=== PATIENT | female | born 1935 | race Caucasian/White ===

== ENCOUNTER 2018-07-16 19:13 | Emergency (ER) | payer MEDICAID ==
[~2018-07-16] VITALS: Ht 152.4 cm; Wt 40.8 kg
[~2018-07-16 19:13] MED LIST: ASPI81TA31 PO; BALS750C PO; Budesonide PO; CLON0.5T12 PO; ESOM40CA PO; GABA-532 PO; HYDR25SU7 RC; LEVO500T2 PO; METO25TA6 PO; TRAM50TA2 PO
--- NOTE | 2018-07-16 20:08 | NUR ---
PT WENT DOWN TO RADIOLOGY DEPT FOR CT SCAN & XRAYS.
--- NOTE | 2018-07-16 20:36 | NUR ---
PT BACK FROM CT SCAN. DAUGHTER AT BEDSIDE.
--- NOTE | 2018-07-16 20:48 | NUR ---
Patient discharged to home in stable conditon. Written and verbal after care instructions given. Patient verbalizes understanding of instructions. Pt ambulated out of ER in steady gait accompanied by daughter. All belongings with pt. VSS. NAD noted.
[2018-07-16 20:49] VITALS: BP 138/84
== END 2018-07-16 20:49 | disposition home or self-care (01) ==
LOC: ER 19:15
DX: S22.31XA Fracture of one rib, right side, initial encounter for closed fracture (principal); S00.83XA Contusion of other part of head, initial encounter; I10 Essential (primary) hypertension; Z91.011 Allergy to milk products; W18.30XA Fall on same level, unspecified, initial encounter; Y93.89 Activity, other specified; Y99.8 Other external cause status; Y92.89 Other specified places as the place of occurrence of the external cause
CPT/HCPCS: 70450; 71101; 72125; 73110; A4663

== ENCOUNTER 2019-07-13 15:58 | Inpatient (IN) | payer MEDICAID, OTHER ==
[~2019-07-13] VITALS: Ht 157.5 cm; Wt 45.4 kg
[~2019-07-13 15:58] MED LIST changes: -CLON0.5T12 PO; +CLON0.5T4 PO
[2019-07-13] MEDS ORDERED: PHEN-705 PO (16:30)
[2019-07-13] MEDS ORDERED: IV NORMAL SALINE 1000 ML BAG IV ONE (16:30)
[2019-07-13] MEDS ORDERED: ATOR40TA PO (16:30)
[2019-07-13] MEDS ORDERED: CITA20TA16 PO (16:30)
[2019-07-13] MEDS ORDERED: PANT40TA4 PO (16:30)
[2019-07-13 16:46] LABS: BASOPHILS % (AUTO) 0.3 % (0.0-2.0); EOSINOPHILS % (AUTO) 0.4 % (0.0-7.0); HEMATOCRIT 32.6 % (31.2-41.9); HEMOGLOBIN 10.9 g/dL (10.9-14.3); LYMPHOCYTES # (AUTO) 0.7 K/uL (20.0-40.0); MEAN CORPUSCULAR HEMOGLOBIN 31.2 uug (24.7-32.8); MEAN CORPUSCULAR HGB CONC 33 g/dL (32.3-35.6); MEAN CORPUSCULAR VOLUME 93.6 fL (75.5-95.3); MONOCYTES # (AUTO) 0.8 K/uL (2.0-10.0); MONOCYTES % (AUTO) 13.9 % (0.0-11.0); NEUTROPHILS # (AUTO) 4.4 K/uL (1.8-8.9); NEUTROPHILS % (AUTO) 74.4 % (38.5-71.5); PLATELET COUNT (AUTO) 200 K/uL (179-408); RED BLOOD CELL COUNT(AUTO) 3.48 MIL/uL (3.63-4.92)
[2019-07-13 16:53] LABS: CREATININE 1.2 mg/dL (0.6-1.3)
[2019-07-13 16:58] LABS: BILIRUBIN,DIRECT 0.1 mg/dL (0.0-0.2); BILIRUBIN,TOTAL 0.2 mg/dL (0.2-1.0); TOTAL PROTEIN, SERUM 6.8 g/dL (6.4-8.2)
[2019-07-13 17:41] LABS: *BILIRUBIN,URIN NEGATIVE (NEGATIVE); *BLOOD, URINE 3+ (NEGATIVE); *CLARITY,URINE SLIGHTLY CLOUDY (CLEAR); *COLOR,URINE YELLOW (YELLOW); *KETONES,URINE NEGATIVE (NEGATIVE); *UROBILINOGEN,URINE 0.2 E.U./dl (NORMAL); LEUKOCYTE ESTERASE ,URINE 2+ (NEGATIVE); NITRITE, URINE POSITIVE (NEGATIVE); PH,URINE 6.5 (5.0-8.0); UGLUCOSE NEGATIVE (NEGATIVE)
[2019-07-13] MEDS ORDERED: CEFTRIAXONE 1 G in IV DEXTROSE 5% 50 ML IV ONE (17:45)
[2019-07-13 17:49] LABS: BACTERIA,URINE MANY /HPF (NONE SEEN); WBC,URINE 20-50 /HPF (0-3)
[2019-07-13 17:50] LABS: SQUAMOUS EPITHELIAL CELL,UR FEW /HPF (NONE SEEN)
[2019-07-13 17:51] LABS: URINE AMORPHOUS URATE MODERATE /HPF
[2019-07-13] MEDS ORDERED: CEFTRIAXONE 1 G VIAL ONE (17:53)
--- NOTE | 2019-07-13 18:55 | NUR ---
Patient is in CT scan, pending patient's private group insurance special agent's callback.
--- NOTE | 2019-07-13 19:06 | NUR ---
Patient will be admitted in [facility] per ER admitting staff Maribel, pending CT results@this time
--- NOTE | 2019-07-13 19:23 | NUR ---
Dr Kang accepted the patient for telemetry admission, pending telemetry bed & nurse assignment@this time. Endorsed to CASE lee
--- NOTE | 2019-07-13 19:27 | NUR ---
received care for patient will be admitted to tele awaiting bed assignment. daughter at the bedside with patient.presently resting quietly on tele v/sbp 128/89 hr 107 02 sat. 95% on r/a
--- NOTE | 2019-07-13 19:38 | NUR ---
PATIENT TEMP.103.1 WITH C/O PAIN TO SHOULDER SWAPNIL DR. FISCHER WILL ORDER PAIN MED.
[2019-07-13] MEDS ORDERED: ACETAMINOPHEN ES 500 MG TABLET ONE (19:39)
[2019-07-13] MEDS ORDERED: MORPHINE SULFATE 4 MG/1 ML DISP.SYRIN ONE (19:42)
[2019-07-13] MEDS ORDERED: ONDANSETRON 4 MG/2 ML VIAL ONE (19:42)
[2019-07-13] MEDS ORDERED: PHENAZOPYRIDINE HCL 200 MG PO PRN (19:45)
[2019-07-13] MEDS ORDERED: ONDANSETRON 4 MG/2 ML VIAL IV PRN (19:45)
[2019-07-13] MEDS ORDERED: ONDANSETRON 4 MG/2 ML VIAL IV ONE (19:45)
[2019-07-13] MEDS ORDERED: ACETAMINOPHEN ES 500 MG TABLET PO ONE (19:45)
[2019-07-13] MEDS ORDERED: MORPHINE SULFATE 2 MG/1 ML DISP.SYRIN IV PRN (19:45)
[2019-07-13] MEDS ORDERED: MORPHINE SULFATE 4 MG/1 ML DISP.SYRIN IV ONE (19:45)
--- NOTE | 2019-07-13 20:30 | NUR ---
Received patient via gurney accompanied by ED staff and daughter. Transferred to bed safely, noted patient Farsi speaking, daughter able to translate. Not in any form of distress. No complaints at the moment. Noted still febrile, provided cooling measures. Oriented to hospital unit protocols. Made comfortable in bed. Will continue to monitor.
[2019-07-13 20:34] VITALS: BP 122/67
[2019-07-13] MEDS: IV 1/2NS 1000 ML 1,000 ML IV PRN (20:40)
[2019-07-13] MEDS: DOCUSATE SODIUM 100 MG CAPSULE PO SCH (21:00)
--- NOTE | 2019-07-13 21:30 | NUR ---
Noted order for Kidney Ultrasound tomorrow, instructed daughter to have patient NPO after midnight in preparation for procedure.
[2019-07-13] MEDS: ATORVASTATIN 40 MG TABLET PO SCH (21:57)
[2019-07-13] MEDS: CLONAZEPAM 1 MG TABLET PO SCH (21:57)
[2019-07-13] MEDS: GABAPENTIN 100 MG CAPSULE PO SCH (21:57)
[2019-07-14 00:30] VITALS: BP 93/51
[2019-07-14 04:45] VITALS: BP 101/56
--- NOTE | 2019-07-14 06:24 | NUR ---
Patient complaining of left shoulder pain at the moment, pain scale 5/10, offered acetaminophen PO however patient declined. Instructed patient to let the staff know if the pain worsens. Protonix not given, patient scheduled for kidney ultrasound requiring NPO, will endorse to morning shift to give to patient just before she eats breakfast after procedure. No other untoward events noted. Attended all needs. Ensured safety and comfort.
[2019-07-14 07:04] LABS: BASOPHILS % (AUTO) 0.3 % (0.0-2.0); EOSINOPHILS % (AUTO) 0.4 % (0.0-7.0); HEMOGLOBIN 10.1 g/dL (10.9-14.3); LYMPHOCYTES # (AUTO) 0.8 K/uL (20.0-40.0); LYMPHOCYTES % (AUTO) 12.1 % (20.5-51.5); MEAN CORPUSCULAR HEMOGLOBIN 31.4 uug (24.7-32.8); MEAN CORPUSCULAR HGB CONC 34 g/dL (32.3-35.6); MEAN CORPUSCULAR VOLUME 93.6 fL (75.5-95.3); MONOCYTES # (AUTO) 0.7 K/uL (2.0-10.0); MONOCYTES % (AUTO) 10.8 % (0.0-11.0); NEUTROPHILS # (AUTO) 5.1 K/uL (1.8-8.9); NEUTROPHILS % (AUTO) 76.4 % (38.5-71.5); PLATELET COUNT (AUTO) 182 K/uL (179-408); RED BLOOD CELL COUNT(AUTO) 3.21 MIL/uL (3.63-4.92); WHITE BLOOD COUNT (AUTO) 6.6 K/uL (3.8-11.8)
--- NOTE | 2019-07-14 07:20 | NUR ---
Received patient in bed with daughter at bedside. No c/o pain at this time. will continue to monitor. Protonix not given by previous nurse due to patient is scheduled for kidney ultrasound requiring NPO at 9am, Ensured safety and comfort.
[2019-07-14 07:31] LABS: THYROID STIMULATING HORMONE 1.766 mIU/mL (0.358-3.740)
[2019-07-14 07:57] LABS: IRON, SERUM 10 ug/dL (50-175)
[2019-07-14 08:01] LABS: ALANINE AMINOTRANSFERASE 11 U/L (14-59); ALKALINE PHOSPHATASE 63 U/L (50-136); ASPARTATE AMINOTRANSFERASE 16 U/L (15-37); BILIRUBIN,TOTAL 0.3 mg/dL (0.2-1.0); CARBON DIOXIDE 28 mmol/L (21-32); CHLORIDE 107 mmol/L (98-107); CHOLESTEROL 98 mg/dL (<200); GLUCOSE 93 mg/dL (74-106); HDL CHOLESTEROL 49 mg/dL (40-60); PHOSPHOROUS 3.6 mg/dL (2.5-4.9); POTASSIUM 4.8 mmol/L (3.5-5.1); TRIGLYCERIDES 25 MG/DL (30-150); UREA NITROGEN, BLOOD 12 mg/dL (7-18)
[2019-07-14] MEDS ORDERED: ASPIRIN 81 MG TAB.CHEW PO SCH (09:00)
[2019-07-14] MEDS: PANTOPRAZOLE SODIUM 40 MG TABLET.DR PO SCH (09:03)
[2019-07-14] MEDS: CITALOPRAM 20 MG TABLET PO SCH (09:05)
[2019-07-14] MEDS: METOPROLOL TARTRATE 25 MG TABLET PO SCH ×2 (09:15→16:21)
[2019-07-14] MEDS: IV 1/2NS 1000 ML 1,000 ML IV PRN (10:51)
[2019-07-14 11:45] VITALS: BP 90/51
[2019-07-14] MEDS: SOD FERRIC GLUC COMPLX/SUCROSE 125 MG in IV NORMAL SALINE 100 ML IV SCH (13:13)
[2019-07-14 15:45] VITALS: BP 94/52
[2019-07-14] MEDS: ACETAMINOPHEN 325 MG TABLET PO PRN (16:21)
[2019-07-14 16:22] VITALS: BP 130/73
[2019-07-14] MEDS: CEFTRIAXONE 1 G in IV DEXTROSE 5% 50 ML IV SCH (17:31)
--- NOTE | 2019-07-14 19:00 | NUR ---
patient in bed with daughter at bedside. No c/o pain at this time. will continue to monitor, Ensured safety and comfort.
--- NOTE | 2019-07-14 19:30 | NUR ---
Received patient awake, ao x 4, afebrile. No distress noted. Patient complaining of pain at IV site, assessed no leaking noted, no redness, IVF infusing well, will change dressing. Noted daughter still present at bedside. Noise and lights subdued. Will continue to monitor.
[2019-07-14 20:26] VITALS: BP 103/53
[2019-07-14] MEDS: GABAPENTIN 100 MG CAPSULE PO SCH (20:58)
[2019-07-14] MEDS: DOCUSATE SODIUM 100 MG CAPSULE PO SCH (20:58)
[2019-07-14] MEDS: CLONAZEPAM 1 MG TABLET PO SCH (20:58)
[2019-07-14] MEDS: ATORVASTATIN 40 MG TABLET PO SCH (20:58)
[2019-07-15] MEDS: ACETAMINOPHEN 325 MG TABLET PO PRN (00:30)
[2019-07-15 01:04] VITALS: BP 108/49
[2019-07-15] MEDS: IV 1/2NS 1000 ML 1,000 ML IV PRN ×2 (01:20→17:32)
[2019-07-15 05:13] VITALS: BP 114/64
--- NOTE | 2019-07-15 06:30 | NUR ---
Patient had a fever last night, resolved after acetaminophen dose. Patient complained of shoulder pain but refused any pain medication, pain relieved with repositioning. Attended all needs. Ensured safety and comfort. Patient's daughter refused to give the protonix now states it is too early and requests it to be given 15minutes before she eats breakfast, will endorse to morning shift.
[2019-07-15 08:00] VITALS: BP 148/86
[2019-07-15] MEDS: PANTOPRAZOLE SODIUM 40 MG TABLET.DR PO SCH (08:40)
[2019-07-15] MEDS: CITALOPRAM 20 MG TABLET PO SCH (08:40)
--- NOTE | 2019-07-15 08:40 | NUR ---
RECEIVED IN BED AWAKE ALERT AND ORIENTED DENIES PAIN OR DISCOMFORTS AT THIS TIME DUE MEDICATIONS GIVEN AFEBRILE AT THIS TIME TEMP IS 98.2 BLOOD PRESSURE IS 101/54 LOPRESSOR NOT GIVEN AT THIS TIME WILL RECHECK BLOOD PRESSURE AT A LATER TIME AND WILL THEN GIVE THE LOPRESSORE IF BLOOD PRESSURE IS BETTER.ON ROOM AIR WITH NO SHORTNESS OF BREATH REMAIN ON IVF ORDERED WITH NO S/S OF INFILTERATION ON SITE DAUGHTER AT THE BEDSIDE MADE COMFORTABLE AND WILL CONTINUE TO OBSERVE.
[2019-07-15] MEDS: METOPROLOL TARTRATE 25 MG TABLET PO SCH ×2 (08:44→17:23)
--- NOTE | 2019-07-15 10:54 | NUR ---
PATIENT SEEN BY THE PHYSICAL THERAPY FOR AMBULATION AND PATIENT GAITED WITH THE FRONT WHEEL WALKER WITH [employer] AND PER THE THERAPIST ITS OKAY FOR PATIENTS DAUGHTER TO TO WALK HER WHENEVER SHE WANTS NOT IN DISTRESS AT THIS TIME.
[2019-07-15 11:23] VITALS: BP 101/49
[2019-07-15] MEDS: SOD FERRIC GLUC COMPLX/SUCROSE 125 MG in IV NORMAL SALINE 100 ML IV SCH (14:00)
[2019-07-15 15:36] VITALS: BP 116/61
--- NOTE | 2019-07-15 16:00 | NUR ---
DR CRABTREE HERE TO SEE PATIENT AND I INFORMED HIM THAT PATIENT SYSTOLIC BLOOD PRESSURE TENDS TO RUN LOW SO HE GAVE ME PARAMETERS TO HOLD ONLY IF BELOW 100 AND NOTED.
[2019-07-15] MEDS: ASPIRIN 81 MG TAB.CHEW PO SCH (17:22)
[2019-07-15] MEDS: CEFTRIAXONE 1 G in IV DEXTROSE 5% 50 ML IV SCH (17:23)
--- NOTE | 2019-07-15 18:00 | NUR ---
PATIENT IS RESTING WITH DAUGHTER AT THE BEDSIDE IV ANTIBIOTICS GIVEN ORDERED WITH NO ADVERSE OR ALLERGIC REACTIONS AT THIS TIME RESTING WITH NO DISTRESS MADE COMFORTABLE AND WILL CONTINUE TO OBSERVE AND PROVIDE SAFE AND THERAPEUTIC ENVIRONMENT AT ALL TIMES.
--- NOTE | 2019-07-15 19:15 | NUR ---
Received patient in bed resting. Daughter at the bedside. AO x 4. Immediate needs attended. Safety precautions in place. No acute distress noted. Will continue to monitor patient throughout shift.
[2019-07-15 20:00] VITALS: BP 148/86
[2019-07-15] MEDS: DOCUSATE SODIUM 100 MG CAPSULE PO SCH (20:18)
[2019-07-15] MEDS: ATORVASTATIN 40 MG TABLET PO SCH (20:18)
[2019-07-15] MEDS: GABAPENTIN 100 MG CAPSULE PO SCH (20:18)
[2019-07-15] MEDS: CLONAZEPAM 1 MG TABLET PO SCH (21:12)
[2019-07-16 05:00] VITALS: BP 127/69
--- NOTE | 2019-07-16 05:41 | NUR ---
Patient slept consistently throughout the night. Daughter at the bedside. Meds given and tolerated. No change in patient condition. Vitals normal. Daughter is awaiting plan of care from MD in the AM. Will endorse care to oncoming shift.
--- NOTE | 2019-07-16 06:20 | NUR ---
PT REQUEST TO HAVE HER PROTONIX AT 0745-8AM. PT IN NO ACUTE DISTRESS. WILL ENDORSE TO INCOMING NURSE FOR CONTINUITY OF CARE.
[2019-07-16 07:26] LABS: BASOPHILS % (AUTO) 0.3 % (0.0-2.0); EOSINOPHILS # (AUTO) 0.1 K/uL (0.0-0.7); HEMATOCRIT 31.6 % (31.2-41.9); HEMOGLOBIN 10.5 g/dL (10.9-14.3); LYMPHOCYTES # (AUTO) 1.1 K/uL (20.0-40.0); LYMPHOCYTES % (AUTO) 21.1 % (20.5-51.5); MEAN CORPUSCULAR HEMOGLOBIN 30.3 uug (24.7-32.8); MEAN CORPUSCULAR HGB CONC 33 g/dL (32.3-35.6); MEAN CORPUSCULAR VOLUME 91.2 fL (75.5-95.3); MONOCYTES # (AUTO) 0.8 K/uL (2.0-10.0); MONOCYTES % (AUTO) 15.2 % (0.0-11.0); NEUTROPHILS # (AUTO) 3.3 K/uL (1.8-8.9); NEUTROPHILS % (AUTO) 62.4 % (38.5-71.5); PLATELET COUNT (AUTO) 245 K/uL (179-408); RED BLOOD CELL COUNT(AUTO) 3.46 MIL/uL (3.63-4.92); WHITE BLOOD COUNT (AUTO) 5.3 K/uL (3.8-11.8)
--- NOTE | 2019-07-16 07:30 | NUR ---
Patient received on bed, no acute distress noted. daughter at bedside. FC in place, draining well denies pain at this time. comfort measures provided. call light within reach. encouraged to call for help
[2019-07-16] MEDS: PANTOPRAZOLE SODIUM 40 MG TABLET.DR PO SCH (07:38)
[2019-07-16 07:43] LABS: CARBON DIOXIDE 27 mmol/L (21-32); CHLORIDE 106 mmol/L (98-107); CREATININE 0.7 mg/dL (0.6-1.3); GLUCOSE 97 mg/dL (74-106); MAGNESIUM 1.9 mg/dL (1.8-2.4); PHOSPHOROUS 2.9 mg/dL (2.5-4.9); POTASSIUM 4.3 mmol/L (3.5-5.1); UREA NITROGEN, BLOOD 13 mg/dL (7-18)
[2019-07-16] MEDS: ASPIRIN 81 MG TAB.CHEW PO SCH (08:08)
[2019-07-16 08:20] LABS: EOSINOPHILS % (MANUAL) 1 % (0-8); LYMPHOCYTES % (MANUAL) 25 % (20-40); MONOCYTES % (MANUAL) 14 % (2-10); NEUTROPHILS % (MANUAL) 60 % (42-75)
[2019-07-16] MEDS: METOPROLOL TARTRATE 25 MG TABLET PO SCH (08:59)
[2019-07-16] MEDS: CITALOPRAM 20 MG TABLET PO SCH (08:59)
[2019-07-16] MEDS: IV 1/2NS 1000 ML 1,000 ML IV PRN (10:24)
[2019-07-16 11:14] VITALS: BP 111/62
[2019-07-16] MEDS ORDERED: CEPH-570 PO (11:59)
[2019-07-16] MEDS ORDERED: DOCU100C36 PO (11:59)
--- NOTE | 2019-07-16 13:50 | NUR ---
Patient discharged to home in stable condition. discharge instructions and papers given and explained to patient/patient's daughter. IV access removed. IV catheter intact. well tolerated by patient. belongings list counted and completed. Patient taken down in wheelchair by Mauricio ARZOLA. Left hospital via private car.
== END 2019-07-16 13:50 | disposition home or self-care (01) | DRG 720 ==
LOC: ER 16:04 → TELE3 19:41 → MEDSURG3 07-15 11:53
PROVIDERS: ADMIT Internal Medicine; ATTEND Internal Medicine
DX: A41.51 Sepsis due to Escherichia coli [E. coli] (principal); G93.41 Metabolic encephalopathy; E44.0 Moderate protein-calorie malnutrition; D68.59 Other primary thrombophilia; K51.90 Ulcerative colitis, unspecified, without complications; N39.0 Urinary tract infection, site not specified; R65.20 Severe sepsis without septic shock; R73.9 Hyperglycemia, unspecified; Z74.09 Other reduced mobility; M19.90 Unspecified osteoarthritis, unspecified site; M81.0 Age-related osteoporosis without current pathological fracture; M47.812 Spondylosis without myelopathy or radiculopathy, cervical region; Z79.899 Other long term (current) drug therapy; Z80.49 Family history of malignant neoplasm of other genital organs; N32.9 Bladder disorder, unspecified; N35.92 Unspecified urethral stricture, female; K21.9 Gastro-esophageal reflux disease without esophagitis; I10 Essential (primary) hypertension; E78.5 Hyperlipidemia, unspecified; H26.9 Unspecified cataract; D64.9 Anemia, unspecified; G89.29 Other chronic pain; B96.20 Unspecified Escherichia coli [E. coli] as the cause of diseases classified elsewhere
CPT/HCPCS: 36415; 70030-TC; 71045; 72125; 73030; 73200; 76770; 83550; 83605; 83690; 83735; 84100; 84443; 85025; 85730; 87040; 87077; 87086; 93005; A4663; A9150; G0378; J0696; J2270; J2405; J2916; J3490; J7030; J7060